=== PATIENT | male | born 1970 | race Caucasian/White ===

== ENCOUNTER 2016-11-22 16:12 | Inpatient (IN) | payer MEDICARE ==
[~2016-11-22] VITALS: Ht 165.1 cm; Wt 74.6 kg
[~2016-11-22 16:12] MED LIST: OLAN15TA2 PO; TRAZ150T85 PO; VITAD1000 PO
[2016-11-22 16:32] VITALS: BP 121/89
[2016-11-22] MEDS ORDERED: OLANZapine 5 MG RAPDIS TABLET PO PRN (16:45)
[2016-11-22] MEDS ORDERED: INFLUENZA VIRUS VACCINE QVS 2016-17 (3YR+)/PF 60 MCG/0.5 ML SYRINGE IM ONE (16:45)
[2016-11-22] MEDS ORDERED: ZOLPIDEM TARTRATE 10 MG TABLET PO PRN (16:45)
[2016-11-22 17:00] VITALS: BP 125/95
[2016-11-22] MEDS: LORazepam 1 MG TABLET PO PRN (18:05)
[2016-11-22] MEDS: TraZODone HCL 150 MG TABLET PO SCH (20:40)
[2016-11-22] MEDS: OLANZapine 10 MG TABLET PO SCH (20:40)
[2016-11-23 00:13] VITALS: BP 108/65
[2016-11-23 08:29] LABS: BASOPHILS # (AUTO) 0.04 K/uL (0.00-0.20); BASOPHILS % (AUTO) 0.7 % (0.0-2.0); EOSINOPHILS # (AUTO) 0.16 K/uL (0.00-0.70); EOSINOPHILS % (AUTO) 2.92 % (1.0-6.0); HEMATOCRIT 47.4 % (41-53); HEMOGLOBIN 15.8 g/dL (13.5-17.5); LYMPHOCYTES # (AUTO) 2.1 K/uL (1.0-4.8); LYMPHOCYTES % (AUTO) 39.2 % (22.0-44.0); MEAN CORPUSCULAR HEMOGLOBIN 28.6 pg (26.0-34.0); MEAN CORPUSCULAR HGB CONC 33.3 G/dL (31.0-37.0); MEAN CORPUSCULAR VOLUME 86 fL (80-100); MONOCYTES # (AUTO) 0.4 K/uL (0.1-1.0); MONOCYTES % (AUTO) 8.2 % (2.0-9.0); NEUTROPHILS # (AUTO) 2.6 K/uL (1.8-7.7); PLATELET COUNT (AUTO) 255 K/uL (150-450); RED CELL DISTRIBUTION WIDTH 14.8 % (11.5-14.5); WHITE BLOOD COUNT (AUTO) 5.3 K/uL (4.5-11.0)
[2016-11-23 08:30] LABS: HEMOGLOBIN A1C 5.9 % (4.5-6.2)
[2016-11-23 08:59] LABS: ALANINE AMINOTRANSFERASE 21 U/L (12-78); ALBUMIN 3.1 g/dL (3.4-5.0); ANION GAP 6 mmol/L (8-16); ASPARTATE AMINOTRANSFERASE 19 U/L (15-37); BILIRUBIN,TOTAL 0.3 mg/dL (0.1-1.0); CALCIUM, TOTAL 8.3 mg/dL (8.8-10.5); CARBON DIOXIDE 28 mmol/L (22-29); CHLORIDE 106 mmol/L (98-107); CREATINE KINASE MB 0.5 ng/mL (0-5); CREATINE KINASE, TOTAL 76 U/L (39-308); CREATININE 1.01 mg/dL (0.60-1.30); GLOMERULAR FILTR. RATE CALC > 60 mL/min (>60); POTASSIUM 4.2 mmol/L (3.5-5.1); SODIUM SERUM 140 mmol/L (136-145); THYROID STIMULATING HORMONE 0.87 uIU/mL (0.36-3.74); TOTAL PROTEIN, SERUM 6.3 g/dL (6.4-8.2); UREA NITROGEN, BLOOD 16 mg/dL (7-18)
[2016-11-23] MEDS ORDERED: FLUoxetine HCL 20 MG CAPSULE PO SCH (09:00)
[2016-11-23 09:07] VITALS: BP 102/66
[2016-11-23] MEDS: LORazepam 1 MG TABLET PO PRN ×2 (11:03→21:04)
[2016-11-23 16:35] VITALS: BP 113/82
[2016-11-23] MEDS: TraZODone HCL 150 MG TABLET PO SCH (21:05)
[2016-11-23] MEDS: OLANZapine 10 MG TABLET PO SCH (21:05)
[2016-11-24 03:07] VITALS: BP 105/60
[2016-11-24] MEDS: FLUoxetine HCL 20 MG CAPSULE PO SCH (08:38)
[2016-11-24 08:43] VITALS: BP 121/64
[2016-11-24 10:26] LABS: HEPATITIS Bs ANTIGEN SCREEN P Negative (Negative); HEPATITIS C AB SCREEN <0.1 s/co ratio (0.0-0.9)
[2016-11-24] MEDS: LORazepam 1 MG TABLET PO PRN ×3 (11:48→20:07)
[2016-11-24 16:00] VITALS: BP 110/71
[2016-11-24] MEDS: TraZODone HCL 150 MG TABLET PO SCH (20:05)
[2016-11-24] MEDS: OLANZapine 10 MG TABLET PO SCH (20:05)
[2016-11-25 06:26] VITALS: BP 103/62
[2016-11-25] MEDS ORDERED: CYANOCOBALAMIN 1,000 MCG/ML VIAL IM ONE (08:00)
[2016-11-25 08:35] VITALS: BP 107/58
[2016-11-25] MEDS: FLUoxetine HCL 20 MG CAPSULE PO SCH (08:42)
[2016-11-25] MEDS: CHOLECALCIFEROL (VIT D3) 1,000 UNITS TABLET PO SCH (08:42)
[2016-11-25 16:00] VITALS: BP 110/69
[2016-11-25] MEDS: LORazepam 1 MG TABLET PO PRN (17:02)
[2016-11-25] MEDS: TraZODone HCL 150 MG TABLET PO SCH (21:03)
[2016-11-25] MEDS: OLANZapine 10 MG TABLET PO SCH (21:03)
[2016-11-26 02:22] VITALS: BP 100/60
[2016-11-26 08:03] VITALS: BP 125/56
[2016-11-26] MEDS: CHOLECALCIFEROL (VIT D3) 1,000 UNITS TABLET PO SCH (09:00)
[2016-11-26] MEDS: CYANOCOBALAMIN 500 MCG TABLET PO SCH (09:00)
[2016-11-26] MEDS: FLUoxetine HCL 20 MG CAPSULE PO SCH (09:09)
[2016-11-26 10:57] VITALS: BP 125/78
[2016-11-26 16:08] VITALS: BP 117/72
[2016-11-26] MEDS: LORazepam 1 MG TABLET PO PRN (16:34)
[2016-11-26] MEDS: OLANZapine 10 MG TABLET PO SCH (20:09)
[2016-11-26] MEDS: TraZODone HCL 150 MG TABLET PO SCH (20:09)
[2016-11-27 07:36] VITALS: BP 112/76
[2016-11-27 08:15] VITALS: BP 106/64
[2016-11-27] MEDS: CYANOCOBALAMIN 500 MCG TABLET PO SCH (08:20)
[2016-11-27] MEDS: CHOLECALCIFEROL (VIT D3) 1,000 UNITS TABLET PO SCH (08:20)
[2016-11-27] MEDS ORDERED: FLUoxetine HCL 20 MG CAPSULE PO SCH (09:00)
[2016-11-27] MEDS: LORazepam 1 MG TABLET PO PRN (16:04)
[2016-11-27 16:50] VITALS: BP 112/69
[2016-11-27] MEDS: TraZODone HCL 150 MG TABLET PO SCH (20:20)
[2016-11-27] MEDS: OLANZapine 10 MG TABLET PO SCH (20:20)
[2016-11-28 00:48] VITALS: BP 114/65
[2016-11-28 08:42] VITALS: BP 111/61
[2016-11-28] MEDS: CYANOCOBALAMIN 500 MCG TABLET PO SCH (08:57)
[2016-11-28] MEDS: CHOLECALCIFEROL (VIT D3) 1,000 UNITS TABLET PO SCH (08:58)
[2016-11-28] MEDS ORDERED: FLUoxetine HCL 20 MG CAPSULE PO SCH (09:00)
[2016-11-28] MEDS: LORazepam 1 MG TABLET PO PRN ×2 (14:52→20:32)
[2016-11-28 16:24] VITALS: BP 106/67
[2016-11-28] MEDS: TraZODone HCL 150 MG TABLET PO SCH (20:10)
[2016-11-28] MEDS: OLANZapine 10 MG TABLET PO SCH (20:10)
[2016-11-29 00:30] VITALS: BP 107/66
[2016-11-29] MEDS ORDERED: FLUO-191 PO (04:57)
[2016-11-29] MEDS ORDERED: CYAN500 PO (04:57)
[2016-11-29 10:55] LABS: CREATINE KINASE, TOTAL 40 U/L (39-308); THYROID STIMULATING HORMONE 1.78 uIU/mL (0.36-3.74)
== END 2016-11-29 07:20 | disposition home or self-care (01) | DRG 885 ==
LOC: B2S 17:26 → EDSTATUS 17:41 → B2S 11-23 14:02
PROVIDERS: ADMIT Psychiatry & Neurology Psychiatry; ATTEND Psychiatry & Neurology Psychiatry
DX: F25.1 Schizoaffective disorder, depressive type (principal); R45.851 Suicidal ideations; E46 Unspecified protein-calorie malnutrition; F15.20 Other stimulant dependence, uncomplicated; F41.9 Anxiety disorder, unspecified; I10 Essential (primary) hypertension; D64.9 Anemia, unspecified; E78.1 Pure hyperglyceridemia; E55.9 Vitamin D deficiency, unspecified; E53.8 Deficiency of other specified B group vitamins; E03.9 Hypothyroidism, unspecified; Z71.51 Drug abuse counseling and surveillance of drug abuser; Z68.27 Body mass index [BMI] 27.0-27.9, adult; Z91.5 Personal history of self-harm; Z62.819 Personal history of unspecified abuse in childhood; Z83.79 Family history of other diseases of the digestive system
CPT/HCPCS: 80074; 82306; 82607; 82746; 83036; 83735; 84439; 84443

== ENCOUNTER 2018-01-20 17:54 | Inpatient (IN) | payer MEDICARE ==
[~2018-01-20] VITALS: Ht 165.1 cm; Wt 68.3 kg
[~2018-01-20 17:54] MED LIST changes: +FLUO-191 PO; +OLAN10TA3 PO; -OLAN15TA2 PO; +TRAZ150T79 PO; -TRAZ150T85 PO; -VITAD1000 PO
[2018-01-20] MEDS ORDERED: ZOLPIDEM TARTRATE 10 MG TABLET PO PRN (18:15)
[2018-01-20 18:36] VITALS: BP 119/83
[2018-01-20] MEDS ORDERED: PNEUMOCOCCAL VACCINE POLYVALENT 0.5 ML VIAL [PPSV23] IM ONE (20:00)
[2018-01-20] MEDS ORDERED: ACETAMINOPHEN 500 MG TABLET PO PRN (21:30)
[2018-01-20 22:41] VITALS: BP 126/79
[2018-01-20] MEDS: IBUPROFEN 600 MG TABLET PO PRN (22:44)
[2018-01-20] MEDS: LORazepam 2 MG TABLET PO PRN (22:44)
[2018-01-21 05:31] VITALS: BP 118/70
[2018-01-21 08:03] VITALS: BP 122/78
[2018-01-21] MEDS: IBUPROFEN 600 MG TABLET PO PRN ×2 (08:03→16:34)
[2018-01-21] MEDS: LORazepam 2 MG TABLET PO PRN ×2 (08:03→16:27)
[2018-01-21 08:31] LABS: BASOPHILS % (AUTO) 1.6 % (0.0-2.0); HEMATOCRIT 39.2 % (41-53); HEMOGLOBIN 13.3 g/dL (13.5-17.5); LYMPHOCYTES % (AUTO) 48.4 % (22.0-44.0); MEAN CORPUSCULAR HEMOGLOBIN 29.3 pg (26.0-34.0); MEAN CORPUSCULAR HGB CONC 33.8 G/dL (31.0-37.0); MEAN CORPUSCULAR VOLUME 87 fL (80-100); MONOCYTES # (AUTO) 0.4 K/uL (0.1-1.0); MONOCYTES % (AUTO) 9.7 % (2.0-9.0); NEUTROPHILS # (AUTO) 1.4 K/uL (1.8-7.7); NEUTROPHILS % (AUTO) 33.3 % (40.0-70.0); PLATELET COUNT (AUTO) 337 K/uL (150-450); RED BLOOD CELL COUNT(AUTO) 4.53 MIL/uL (4.50-5.90); RED CELL DISTRIBUTION WIDTH 13.9 % (11.5-14.5)
[2018-01-21 08:38] LABS: HEMOGLOBIN A1C 5.9 % (4.5-6.2)
[2018-01-21 08:52] LABS: ALANINE AMINOTRANSFERASE 19 U/L (12-78); ALBUMIN 2.7 g/dL (3.4-5.0); ALKALINE PHOSPHATASE 102 U/L (46-116); ANION GAP 7 mmol/L (8-16); ASPARTATE AMINOTRANSFERASE 15 U/L (15-37); BILIRUBIN,TOTAL 0.4 mg/dL (0.1-1.0); CARBON DIOXIDE 29 mmol/L (22-29); CHLORIDE 105 mmol/L (98-107); CHOL/HDL RATIO 1.9 (4.2-7.3); CHOLESTEROL 132 mg/dL (131-200); CREATININE 0.85 mg/dL (0.60-1.30); FREE T4 (FREE THYROXINE) 0.78 ng/dL (0.76-1.46); GLOMERULAR FILTR. RATE CALC > 60 mL/min (>60); GLUCOSE,RANDOM 89 mg/dL (70-110); HDL CHOLESTEROL 71 mg/dL (40-60); LDL CHOL (CALC.) 50 mg/dL (0-130); POTASSIUM 3.3 mmol/L (3.5-5.1); SODIUM SERUM 141 mmol/L (136-145); THYROID STIMULATING HORMONE 0.85 uIU/mL (0.36-3.74); TOTAL PROTEIN, SERUM 5.3 g/dL (6.4-8.2); TRIGLYCERIDES 55 mg/dL (15-150); UREA NITROGEN, BLOOD 12 mg/dL (7-18)
[2018-01-21] MEDS ORDERED: POTASSIUM CHLORIDE 20 MEQ ER TABLET PO ONE (09:45)
[2018-01-21 16:30] VITALS: BP 129/62
[2018-01-21] MEDS: OLANZapine 10 MG TABLET PO SCH (20:34)
[2018-01-21] MEDS: TraZODone HCL 150 MG TABLET PO SCH (20:34)
[2018-01-22 05:59] VITALS: BP 120/82
[2018-01-22 08:53] VITALS: BP 149/76
[2018-01-22] MEDS: LORazepam 2 MG TABLET PO PRN (08:53)
[2018-01-22] MEDS: IBUPROFEN 600 MG TABLET PO PRN ×2 (08:54→20:27)
[2018-01-22] MEDS: FLUoxetine HCL 20 MG CAPSULE PO SCH (08:54)
[2018-01-22 09:15] VITALS: BP 149/76
[2018-01-22 17:12] VITALS: BP 131/87
[2018-01-22 20:25] VITALS: BP 142/70
[2018-01-22] MEDS: TraZODone HCL 150 MG TABLET PO SCH (20:27)
[2018-01-22] MEDS: OLANZapine 10 MG TABLET PO SCH (20:27)
[2018-01-22 22:30] VITALS: BP 143/95
[2018-01-23 07:16] LABS: ANION GAP 7 mmol/L (8-16); CALCIUM, TOTAL 8.2 mg/dL (8.8-10.5); CARBON DIOXIDE 28 mmol/L (22-29); CHLORIDE 107 mmol/L (98-107); CREATINE KINASE, TOTAL 30 U/L (39-308); CREATININE 0.83 mg/dL (0.60-1.30); GLOMERULAR FILTR. RATE CALC > 60 mL/min (>60); GLUCOSE,RANDOM 92 mg/dL (70-110); POTASSIUM 3.6 mmol/L (3.5-5.1); SODIUM SERUM 142 mmol/L (136-145); UREA NITROGEN, BLOOD 14 mg/dL (7-18)
[2018-01-23] MEDS: FLUoxetine HCL 20 MG CAPSULE PO SCH (10:52)
[2018-01-23 12:18] VITALS: BP 98/60
[2018-01-23] MEDS: IBUPROFEN 600 MG TABLET PO PRN (13:23)
[2018-01-23] MEDS: LORazepam 2 MG TABLET PO PRN ×2 (13:23→17:31)
[2018-01-23 17:05] VITALS: BP 116/80
[2018-01-23] MEDS: TraZODone HCL 150 MG TABLET PO SCH (21:12)
[2018-01-23] MEDS: OLANZapine 10 MG TABLET PO SCH (21:12)
[2018-01-24 08:00] VITALS: BP 100/64
[2018-01-24] MEDS: FLUoxetine HCL 20 MG CAPSULE PO SCH (08:47)
[2018-01-24 10:30] VITALS: BP 111/73
[2018-01-24] MEDS: IBUPROFEN 600 MG TABLET PO PRN ×2 (10:48→20:16)
[2018-01-24] MEDS: LORazepam 2 MG TABLET PO PRN ×2 (10:48→20:16)
[2018-01-24 11:50] VITALS: BP 110/64
[2018-01-24 16:15] VITALS: BP 112/84
[2018-01-24] MEDS: OLANZapine 10 MG TABLET PO SCH (20:16)
[2018-01-24] MEDS: TraZODone HCL 150 MG TABLET PO SCH (20:16)
[2018-01-24 21:16] VITALS: BP 97/62
[2018-01-25 08:40] VITALS: BP 120/65
[2018-01-25] MEDS: FLUoxetine HCL 20 MG CAPSULE PO SCH (09:04)
[2018-01-25] MEDS: IBUPROFEN 600 MG TABLET PO PRN ×2 (09:04→16:06)
[2018-01-25 10:10] VITALS: BP 118/61
[2018-01-25] MEDS: LORazepam 2 MG TABLET PO PRN (12:21)
[2018-01-25 16:00] VITALS: BP 130/75
[2018-01-25 17:05] VITALS: BP 118/69
[2018-01-25 18:11] LABS: AMPHET/METH SCREEN,URINE NEGATIVE (NEGATIVE); BARBITURATE SCREEN, URINE NEGATIVE (NEGATIVE); BENZODIAZEPINES SCREEN,URINE NEGATIVE (NEGATIVE); CANNABINOID SCREEN,URINE NEGATIVE (NEGATIVE); COCAINE SCREEN,URINE NEGATIVE (NEGATIVE); METHADONE SCREEN, URINE NEGATIVE (NEGATIVE); OPIATE SCREEN,URINE NEGATIVE (NEGATIVE)
[2018-01-25 18:14] LABS: PHENCYCLIDINE SCREEN,URINE NEGATIVE (NEGATIVE)
[2018-01-25 18:33] LABS: APPEARANCE,URINE CLEAR (CLEAR); BILIRUBIN,URINE NEGATIVE (NEGATIVE); GLUCOSE, URINE (UA) NEGATIVE (NEGATIVE); KETONES,URINE NEGATIVE (NEGATIVE); LEUKOCYTE ESTERASE ,URINE NEGATIVE (NEGATIVE); NITRATE,URINE NEGATIVE (NEGATIVE); OCCULT BLOOD,URINE NEGATIVE (NEGATIVE); PROTEIN,URINE NEGATIVE (NEGATIVE); UROBILINOGEN,URINE 0.2 mg/dL (<=1.0)
[2018-01-25] MEDS: TraZODone HCL 150 MG TABLET PO SCH (20:17)
[2018-01-25] MEDS: OLANZapine 10 MG TABLET PO SCH (20:17)
[2018-01-26 08:50] VITALS: BP 116/61
[2018-01-26] MEDS: IBUPROFEN 600 MG TABLET PO PRN ×2 (09:00→17:19)
[2018-01-26] MEDS: FLUoxetine HCL 20 MG CAPSULE PO SCH (09:00)
[2018-01-26 10:06] VITALS: BP 112/67
[2018-01-26 16:08] VITALS: BP 108/68
[2018-01-26] MEDS: LORazepam 2 MG TABLET PO PRN ×2 (17:19→23:54)
[2018-01-26] MEDS: OLANZapine 10 MG TABLET PO SCH (20:33)
[2018-01-26] MEDS: TraZODone HCL 150 MG TABLET PO SCH (20:33)
[2018-01-27] VITALS (7 sets, daily range): BP systolic 114–145; BP diastolic 75–78
[2018-01-27] MEDS: FLUoxetine HCL 20 MG CAPSULE PO SCH (08:44)
[2018-01-27] MEDS: LORazepam 2 MG TABLET PO PRN ×2 (12:36→20:25)
[2018-01-27] MEDS: IBUPROFEN 600 MG TABLET PO PRN ×2 (12:36→20:26)
[2018-01-27] MEDS: TraZODone HCL 150 MG TABLET PO SCH (20:25)
[2018-01-27] MEDS: OLANZapine 10 MG TABLET PO SCH (20:26)
[2018-01-28 00:45] VITALS: BP 131/79
[2018-01-28] MEDS: FLUoxetine HCL 20 MG CAPSULE PO SCH (08:14)
[2018-01-28 08:37] VITALS: BP 101/60
[2018-01-28 13:44] VITALS: BP 118/71
[2018-01-28] MEDS: IBUPROFEN 600 MG TABLET PO PRN (13:44)
[2018-01-28] MEDS: LORazepam 2 MG TABLET PO PRN ×2 (13:44→18:59)
[2018-01-28 14:44] VITALS: BP 110/64
[2018-01-28 18:35] VITALS: BP 115/69
[2018-01-28] MEDS: TraZODone HCL 150 MG TABLET PO SCH (20:03)
[2018-01-28] MEDS: OLANZapine 10 MG TABLET PO SCH (20:03)
[2018-01-29 00:15] VITALS: BP 114/62
[2018-01-29] MEDS: LORazepam 2 MG TABLET PO PRN ×3 (00:22→20:18)
[2018-01-29] MEDS: FLUoxetine HCL 20 MG CAPSULE PO SCH (08:18)
[2018-01-29 09:02] VITALS: BP 119/80
[2018-01-29 13:43] VITALS: BP 122/64
[2018-01-29] MEDS: IBUPROFEN 600 MG TABLET PO PRN (13:43)
[2018-01-29 17:00] VITALS: BP 114/77
[2018-01-29] MEDS: TraZODone HCL 150 MG TABLET PO SCH (20:16)
[2018-01-29] MEDS: OLANZapine 10 MG TABLET PO SCH (20:16)
[2018-01-30 08:00] VITALS: BP 110/72
[2018-01-30] MEDS ORDERED: BISACODYL 5 MG EC TABLET PO PRN (08:45)
[2018-01-30] MEDS: FLUoxetine HCL 20 MG CAPSULE PO SCH (09:03)
[2018-01-30] MEDS: LORazepam 2 MG TABLET PO PRN (13:58)
[2018-01-30] MEDS: IBUPROFEN 600 MG TABLET PO PRN (13:59)
[2018-01-30 16:25] VITALS: BP 103/51
[2018-01-30 16:59] VITALS: BP 128/73
[2018-01-30] MEDS: ACETAMINOPHEN 500 MG TABLET PO PRN (17:02)
[2018-01-30 17:59] VITALS: BP 121/71
[2018-01-30] MEDS: OLANZapine 10 MG TABLET PO SCH (21:19)
[2018-01-30] MEDS: TraZODone HCL 150 MG TABLET PO SCH (21:20)
[2018-01-31 00:15] VITALS: BP 101/66
[2018-01-31] MEDS: FLUoxetine HCL 20 MG CAPSULE PO SCH (08:13)
[2018-01-31] MEDS: IBUPROFEN 600 MG TABLET PO PRN ×3 (08:15→22:10)
[2018-01-31 08:17] VITALS: BP 105/63
[2018-01-31] MEDS: HALOPERIDOL 5 MG TABLET PO PRN ×2 (11:32→22:10)
[2018-01-31] MEDS: ACETAMINOPHEN 500 MG TABLET PO PRN (13:22)
[2018-01-31 16:02] VITALS: BP 103/58
[2018-01-31] MEDS: OLANZapine 10 MG TABLET PO SCH (20:11)
[2018-01-31] MEDS: TraZODone HCL 150 MG TABLET PO SCH (20:11)
[2018-02-01] MEDS: FLUoxetine HCL 20 MG CAPSULE PO SCH (07:59)
[2018-02-01 09:11] VITALS: BP 118/72
[2018-02-01] MEDS: IBUPROFEN 600 MG TABLET PO PRN ×2 (11:09→19:27)
[2018-02-01] MEDS ORDERED: ACETAMINOPHEN 325 MG TABLET PO PRN (14:00)
[2018-02-01] MEDS: HALOPERIDOL 5 MG TABLET PO PRN (17:03)
[2018-02-01 19:30] VITALS: BP 146/65
[2018-02-01] MEDS: OLANZapine 10 MG TABLET PO SCH (20:06)
[2018-02-01] MEDS: TraZODone HCL 150 MG TABLET PO SCH (20:06)
[2018-02-02] MEDS: FLUoxetine HCL 20 MG CAPSULE PO SCH (07:53)
[2018-02-02] MEDS: IBUPROFEN 600 MG TABLET PO PRN ×2 (07:54→16:24)
[2018-02-02 08:00] VITALS: BP 113/67
[2018-02-02 16:21] VITALS: BP 123/77
[2018-02-02] MEDS: TraZODone HCL 150 MG TABLET PO SCH (20:00)
[2018-02-02] MEDS: OLANZapine 10 MG TABLET PO SCH (20:00)
[2018-02-02] MEDS: HALOPERIDOL 5 MG TABLET PO PRN (20:04)
[2018-02-03 08:18] VITALS: BP 107/62
[2018-02-03] MEDS: IBUPROFEN 600 MG TABLET PO PRN (08:27)
[2018-02-03] MEDS: FLUoxetine HCL 20 MG CAPSULE PO SCH (08:28)
[2018-02-03] MEDS ORDERED: OLAN7.5T2 PO (10:43)
== END 2018-02-03 11:00 | disposition home or self-care (01) | DRG 885 ==
LOC: B2X 18:17 → 3EX 01-22 22:10
PROVIDERS: ADMIT Psychiatry & Neurology Psychiatry; ATTEND Psychiatry & Neurology Psychiatry
DX: F25.9 Schizoaffective disorder, unspecified (principal); E43 Unspecified severe protein-calorie malnutrition; R45.851 Suicidal ideations; D64.9 Anemia, unspecified; F17.200 Nicotine dependence, unspecified, uncomplicated; E87.6 Hypokalemia; D72.819 Decreased white blood cell count, unspecified; F15.10 Other stimulant abuse, uncomplicated; M17.10 Unilateral primary osteoarthritis, unspecified knee; R26.9 Unspecified abnormalities of gait and mobility; F11.10 Opioid abuse, uncomplicated; E88.09 Other disorders of plasma-protein metabolism, not elsewhere classified; K59.00 Constipation, unspecified; Z71.51 Drug abuse counseling and surveillance of drug abuser; Z76.5 Malingerer [conscious simulation]; Z91.19 Patient's noncompliance with other medical treatment and regimen; Z79.899 Other long term (current) drug therapy; Z68.25 Body mass index [BMI] 25.0-25.9, adult
CPT/HCPCS: 80307; 83036; 83735; 84439; 84443; 97116; 97161; 97165; 97530

== ENCOUNTER 2018-07-21 06:39 | Inpatient (IN) | payer MEDICARE ==
[~2018-07-21] VITALS: Ht 162.6 cm; Wt 69.4 kg
[~2018-07-21 06:39] MED LIST changes: +FERR-89 PO
[2018-07-21 10:42] VITALS: BP 125/86
[2018-07-21 12:13] VITALS: BP 117/78
[2018-07-21] MEDS: LORazepam 2 MG TABLET PO PRN ×2 (13:09→22:08)
[2018-07-21 13:20] VITALS: BP 114/68
[2018-07-21 23:15] VITALS: BP 116/70
[2018-07-22] VITALS (8 sets, daily range): BP systolic 106–114; BP diastolic 60–82
[2018-07-22] MEDS: FERROUS SULFATE 325 MG EC TABLET PO SCH (06:55)
[2018-07-22 08:20] LABS: BASOPHILS % (AUTO) 1.3 % (0.0-2.0); EOSINOPHILS % (AUTO) 4.7 % (1.0-6.0); HEMATOCRIT 34.6 % (41-53); LYMPHOCYTES # (AUTO) 1.5 K/uL (1.0-4.8); LYMPHOCYTES % (AUTO) 31.1 % (22.0-44.0); MEAN CORPUSCULAR HEMOGLOBIN 22.6 pg (26.0-34.0); MEAN CORPUSCULAR HGB CONC 31.9 G/dL (31.0-37.0); MEAN CORPUSCULAR VOLUME 71 fL (80-100); MONOCYTES # (AUTO) 0.4 K/uL (0.1-1.0); NEUTROPHILS # (AUTO) 2.7 K/uL (1.8-7.7); NEUTROPHILS % (AUTO) 54.9 % (40.0-70.0); PLATELET COUNT (AUTO) 324 K/uL (150-450); RED BLOOD CELL COUNT(AUTO) 4.88 MIL/uL (4.50-5.90); RED CELL DISTRIBUTION WIDTH 22.2 % (11.5-14.5)
[2018-07-22 08:42] LABS: ALANINE AMINOTRANSFERASE 24 U/L (12-78); ALBUMIN 2.8 g/dL (3.4-5.0); ALKALINE PHOSPHATASE 85 U/L (46-116); ANION GAP 6 mmol/L (8-16); ASPARTATE AMINOTRANSFERASE 22 U/L (15-37); BILIRUBIN,TOTAL 0.1 mg/dL (0.1-1.0); CARBON DIOXIDE 28 mmol/L (22-29); CHLORIDE 106 mmol/L (98-107); CHOL/HDL RATIO 2.3 (4.2-7.3); CHOLESTEROL 147 mg/dL (131-200); CREATININE 0.87 mg/dL (0.60-1.30); FREE T4 (FREE THYROXINE) 0.72 ng/dL (0.76-1.46); GLOMERULAR FILTR. RATE CALC > 60 mL/min (>60); GLUCOSE,RANDOM 101 mg/dL (70-110); HDL CHOLESTEROL 64 mg/dL (40-60); LDL CHOL (CALC.) 66 mg/dL (0-130); POTASSIUM 3.8 mmol/L (3.5-5.1); SODIUM SERUM 140 mmol/L (136-145); THYROID STIMULATING HORMONE 0.38 uIU/mL (0.36-3.74); TOTAL PROTEIN, SERUM 5.9 g/dL (6.4-8.2); TRIGLYCERIDES 87 mg/dL (15-150); UREA NITROGEN, BLOOD 17 mg/dL (7-18)
[2018-07-22] MEDS: LORazepam 2 MG TABLET PO PRN (16:29)
[2018-07-22] MEDS: OLANZapine 10 MG TABLET PO SCH (20:38)
[2018-07-22] MEDS: TraZODone HCL 150 MG TABLET PO SCH (20:38)
[2018-07-23 05:14] VITALS: BP 110/68
[2018-07-23] MEDS: FERROUS SULFATE 325 MG EC TABLET PO SCH (06:59)
[2018-07-23 08:16] VITALS: BP 104/69
[2018-07-23] MEDS: FLUoxetine HCL 20 MG CAPSULE PO SCH (08:40)
[2018-07-23] MEDS: LORazepam 2 MG TABLET PO PRN ×2 (10:34→17:18)
[2018-07-23 16:06] VITALS: BP 121/76
[2018-07-23] MEDS: OLANZapine 10 MG TABLET PO SCH (20:41)
[2018-07-23] MEDS: TraZODone HCL 150 MG TABLET PO SCH (20:41)
[2018-07-24 06:27] VITALS: BP 120/72
[2018-07-24] MEDS: FERROUS SULFATE 325 MG EC TABLET PO SCH (06:50)
[2018-07-24 08:34] VITALS: BP 117/69
[2018-07-24] MEDS: FLUoxetine HCL 20 MG CAPSULE PO SCH (08:34)
[2018-07-24] MEDS ORDERED: BISACODYL 5 MG EC TABLET PO PRN (15:45)
[2018-07-24 17:01] VITALS: BP 121/78
[2018-07-24] MEDS: LORazepam 2 MG TABLET PO PRN (17:17)
[2018-07-24] MEDS: OLANZapine 10 MG TABLET PO SCH (20:59)
[2018-07-24] MEDS: TraZODone HCL 150 MG TABLET PO SCH (20:59)
[2018-07-25 06:31] VITALS: BP 118/72
[2018-07-25] MEDS: FERROUS SULFATE 325 MG EC TABLET PO SCH (06:44)
[2018-07-25] MEDS: FLUoxetine HCL 20 MG CAPSULE PO SCH (08:39)
[2018-07-25 09:18] VITALS: BP_SYST 107; BP_SYST 137; BP_DIAS 62; BP_DIAS 66
[2018-07-25] MEDS: LORazepam 2 MG TABLET PO PRN (12:13)
[2018-07-25 16:34] VITALS: BP 110/67
[2018-07-25] MEDS: OLANZapine 10 MG TABLET PO SCH (20:28)
[2018-07-25] MEDS: TraZODone HCL 150 MG TABLET PO SCH (20:29)
[2018-07-26] MEDS: FERROUS SULFATE 325 MG EC TABLET PO SCH (06:46)
[2018-07-26 08:12] VITALS: BP 120/73
[2018-07-26] MEDS: FLUoxetine HCL 20 MG CAPSULE PO SCH (08:50)
[2018-07-26] MEDS: LORazepam 2 MG TABLET PO PRN ×2 (11:14→19:15)
[2018-07-26 16:09] VITALS: BP 122/84
[2018-07-26] MEDS: TraZODone HCL 150 MG TABLET PO SCH (20:07)
[2018-07-26] MEDS: OLANZapine 10 MG TABLET PO SCH (20:07)
[2018-07-27 05:22] VITALS: BP 120/86
[2018-07-27] MEDS: FERROUS SULFATE 325 MG EC TABLET PO SCH (07:12)
[2018-07-27] MEDS: FLUoxetine HCL 20 MG CAPSULE PO SCH (08:23)
[2018-07-27 09:56] VITALS: BP 117/96
[2018-07-27 10:30] VITALS: BP 116/84
[2018-07-27] MEDS: LORazepam 2 MG TABLET PO PRN ×2 (13:36→21:50)
[2018-07-27 16:08] VITALS: BP 116/75
[2018-07-27] MEDS: TraZODone HCL 150 MG TABLET PO SCH (20:08)
[2018-07-27] MEDS: OLANZapine 10 MG TABLET PO SCH (20:08)
[2018-07-28 05:50] VITALS: BP 120/81
[2018-07-28] MEDS: FERROUS SULFATE 325 MG EC TABLET PO SCH (06:14)
[2018-07-28 08:01] VITALS: BP 116/95
[2018-07-28] MEDS: FLUoxetine HCL 20 MG CAPSULE PO SCH (08:22)
[2018-07-28] MEDS: LORazepam 2 MG TABLET PO PRN ×2 (11:51→19:08)
[2018-07-28 18:50] VITALS: BP 123/74
[2018-07-28] MEDS: OLANZapine 10 MG TABLET PO SCH (20:38)
[2018-07-28] MEDS: TraZODone HCL 150 MG TABLET PO SCH (20:38)
[2018-07-29 04:56] VITALS: BP 121/68
[2018-07-29] MEDS: FERROUS SULFATE 325 MG EC TABLET PO SCH (06:05)
[2018-07-29 08:21] VITALS: BP 117/69
[2018-07-29] MEDS: FLUoxetine HCL 20 MG CAPSULE PO SCH (08:26)
[2018-07-29] MEDS: LORazepam 2 MG TABLET PO PRN ×2 (11:51→16:33)
[2018-07-29 16:27] VITALS: BP 119/79
[2018-07-29] MEDS: OLANZapine 10 MG TABLET PO SCH (20:31)
[2018-07-29] MEDS: TraZODone HCL 150 MG TABLET PO SCH (20:31)
[2018-07-30] VITALS: BP 125/80
[2018-07-30] MEDS: ZOLPIDEM TARTRATE 10 MG TABLET PO PRN (01:11)
[2018-07-30] MEDS: FERROUS SULFATE 325 MG EC TABLET PO SCH (06:48)
[2018-07-30 08:24] VITALS: BP 110/64
[2018-07-30] MEDS: FLUoxetine HCL 20 MG CAPSULE PO SCH (08:38)
[2018-07-30] MEDS: LORazepam 2 MG TABLET PO PRN ×2 (10:45→18:49)
[2018-07-30 16:24] VITALS: BP 94/66
[2018-07-30] MEDS ORDERED: ACETAMINOPHEN 325 MG TABLET PO PRN (18:30)
[2018-07-30 18:47] VITALS: BP 112/65
[2018-07-30] MEDS: IBUPROFEN 600 MG TABLET PO PRN (18:49)
[2018-07-30] MEDS: OLANZapine 10 MG TABLET PO SCH (20:35)
[2018-07-30] MEDS: TraZODone HCL 150 MG TABLET PO SCH (20:35)
[2018-07-31 04:29] VITALS: BP 122/82
[2018-07-31 05:22] VITALS: BP 122/82
[2018-07-31] MEDS: IBUPROFEN 600 MG TABLET PO PRN ×2 (05:22→16:24)
[2018-07-31] MEDS: LORazepam 2 MG TABLET PO PRN ×2 (06:15→14:04)
[2018-07-31] MEDS: FERROUS SULFATE 325 MG EC TABLET PO SCH (06:17)
[2018-07-31 08:35] VITALS: BP 102/70
[2018-07-31] MEDS: FLUoxetine HCL 20 MG CAPSULE PO SCH (08:35)
[2018-07-31 16:18] VITALS: BP 111/65
[2018-07-31] MEDS: OLANZapine 10 MG TABLET PO SCH (20:33)
[2018-07-31] MEDS: TraZODone HCL 150 MG TABLET PO SCH (20:33)
[2018-08-01 02:57] VITALS: BP 135/93
[2018-08-01] MEDS: ZOLPIDEM TARTRATE 10 MG TABLET PO PRN ×2 (02:57→21:24)
[2018-08-01] MEDS: LORazepam 2 MG TABLET PO PRN ×2 (02:57→14:00)
[2018-08-01 05:34] VITALS: BP 135/93
[2018-08-01] MEDS: IBUPROFEN 600 MG TABLET PO PRN ×2 (05:34→14:00)
[2018-08-01] MEDS: FERROUS SULFATE 325 MG EC TABLET PO SCH (06:38)
[2018-08-01 08:14] VITALS: BP 123/65
[2018-08-01] MEDS: FLUoxetine HCL 20 MG CAPSULE PO SCH (09:00)
[2018-08-01 14:00] VITALS: BP 126/77
[2018-08-01 16:26] VITALS: BP 112/73
[2018-08-01] MEDS: OLANZapine 10 MG TABLET PO SCH (20:03)
[2018-08-01] MEDS: TraZODone HCL 150 MG TABLET PO SCH (20:03)
[2018-08-02 02:32] VITALS: BP 147/82
[2018-08-02 03:30] VITALS: BP 115/78
[2018-08-02] MEDS: IBUPROFEN 600 MG TABLET PO PRN (03:35)
[2018-08-02] MEDS: FERROUS SULFATE 325 MG EC TABLET PO SCH (06:04)
[2018-08-02] MEDS: FLUoxetine HCL 20 MG CAPSULE PO SCH (08:14)
[2018-08-02 08:20] VITALS: BP 109/80
== END 2018-08-02 10:50 | disposition home or self-care (01) | DRG 885 ==
LOC: B2X 10:47 → EDSTATUS 11:30
PROVIDERS: ADMIT Psychiatry & Neurology Psychiatry; ATTEND Psychiatry & Neurology Psychiatry
DX: F25.1 Schizoaffective disorder, depressive type (principal); R45.851 Suicidal ideations; E46 Unspecified protein-calorie malnutrition; Z28.21 Immunization not carried out because of patient refusal; D50.9 Iron deficiency anemia, unspecified; E03.9 Hypothyroidism, unspecified; E87.6 Hypokalemia; F22 Delusional disorders; J44.9 Chronic obstructive pulmonary disease, unspecified; K59.00 Constipation, unspecified; Z91.5 Personal history of self-harm; F12.90 Cannabis use, unspecified, uncomplicated; M54.9 Dorsalgia, unspecified; Z68.26 Body mass index [BMI] 26.0-26.9, adult
CPT/HCPCS: 84439; 84443; 87081

== ENCOUNTER 2018-08-18 14:16 | Inpatient (IN) | payer MEDICARE ==
[~2018-08-18] VITALS: Ht 165.1 cm; Wt 69.9 kg
[2018-08-18 19:04] LABS: BASOPHILS % (AUTO) 1.3 % (0.0-2.0); EOSINOPHILS % (AUTO) 1.4 % (1.0-6.0); HEMATOCRIT 40.8 % (41-53); HEMOGLOBIN 12.8 g/dL (13.5-17.5); LYMPHOCYTES # (AUTO) 2.4 K/uL (1.0-4.8); LYMPHOCYTES % (AUTO) 32.8 % (22.0-44.0); MEAN CORPUSCULAR HEMOGLOBIN 23.4 pg (26.0-34.0); MEAN CORPUSCULAR HGB CONC 31.4 G/dL (31.0-37.0); MEAN CORPUSCULAR VOLUME 75 fL (80-100); MONOCYTES # (AUTO) 0.6 K/uL (0.1-1.0); MONOCYTES % (AUTO) 8.5 % (2.0-9.0); NEUTROPHILS # (AUTO) 4.1 K/uL (1.8-7.7); PLATELET COUNT (AUTO) 435 K/uL (150-450); RED BLOOD CELL COUNT(AUTO) 5.48 MIL/uL (4.50-5.90); RED CELL DISTRIBUTION WIDTH 25.5 % (11.5-14.5)
[2018-08-18 19:14] LABS: ANION GAP 4 mmol/L (8-16); CALCIUM, TOTAL 8.9 mg/dL (8.8-10.5); CARBON DIOXIDE 33 mmol/L (22-29); CHLORIDE 102 mmol/L (98-107); CREATININE 0.74 mg/dL (0.60-1.30); GLOMERULAR FILTR. RATE CALC > 60 mL/min (>60); GLUCOSE,RANDOM 96 mg/dL (70-110); POTASSIUM 4.1 mmol/L (3.5-5.1); SODIUM SERUM 139 mmol/L (136-145); UREA NITROGEN, BLOOD 12 mg/dL (7-18)
[2018-08-18 19:20] LABS: ALANINE AMINOTRANSFERASE 34 U/L (12-78); ALBUMIN 3.6 g/dL (3.4-5.0); ALKALINE PHOSPHATASE 93 U/L (46-116); ASPARTATE AMINOTRANSFERASE 38 U/L (15-37); BILIRUBIN,TOTAL 0.4 mg/dL (0.1-1.0); TOTAL PROTEIN, SERUM 7.8 g/dL (6.4-8.2)
[2018-08-18 20:16] LABS: AMPHET/METH SCREEN,URINE POSITIVE (NEGATIVE); BARBITURATE SCREEN, URINE NEGATIVE (NEGATIVE); BENZODIAZEPINES SCREEN,URINE NEGATIVE (NEGATIVE); CANNABINOID SCREEN,URINE NEGATIVE (NEGATIVE); COCAINE SCREEN,URINE NEGATIVE (NEGATIVE); METHADONE SCREEN, URINE NEGATIVE (NEGATIVE); OPIATE SCREEN,URINE NEGATIVE (NEGATIVE); PHENCYCLIDINE SCREEN,URINE NEGATIVE (NEGATIVE)
[2018-08-18] MEDS ORDERED: CloNIDine HCL 0.1 MG TABLET PO ONE (22:00)
[2018-08-18 22:14] VITALS: BP 138/93
[2018-08-18 22:27] VITALS: BP 138/93
[2018-08-19 04:12] VITALS: BP 116/79
[2018-08-19] MEDS ORDERED: HALOPERIDOL 5 MG TABLET PO PRN (06:00)
[2018-08-19] MEDS: LORazepam 2 MG TABLET PO PRN ×2 (06:02→13:29)
[2018-08-19] MEDS ORDERED: BISACODYL 5 MG EC TABLET PO PRN (07:15)
[2018-08-19] MEDS ORDERED: BISMUTH SUBSALICYLATE 262 MG CHEWABLE TABLET CHEW PRN (07:15)
[2018-08-19] MEDS ORDERED: IBUPROFEN 600 MG TABLET PO PRN (07:15)
[2018-08-19] MEDS ORDERED: ACETAMINOPHEN 325 MG TABLET PO PRN (07:15)
[2018-08-19 08:00] VITALS: BP 121/77
[2018-08-19] MEDS: CloNIDine HCL 0.1 MG TABLET PO SCH ×2 (08:28→16:42)
[2018-08-19 16:22] VITALS: BP 102/66
[2018-08-19 16:50] VITALS: BP 117/66
[2018-08-19] MEDS: TraZODone HCL 150 MG TABLET PO SCH (20:23)
[2018-08-19] MEDS: OLANZapine 10 MG TABLET PO SCH (20:24)
[2018-08-20 06:15] VITALS: BP 120/81
[2018-08-20 08:10] VITALS: BP 127/77
[2018-08-20] MEDS: CloNIDine HCL 0.1 MG TABLET PO SCH ×2 (08:48→16:27)
[2018-08-20] MEDS: MULTIVITAMINS WITH IRON TABLET PO SCH (08:48)
[2018-08-20] MEDS: FLUoxetine HCL 20 MG CAPSULE PO SCH (08:48)
[2018-08-20] MEDS: LORazepam 2 MG TABLET PO PRN ×2 (09:19→16:27)
[2018-08-20 16:50] VITALS: BP 118/72
[2018-08-20] MEDS: OLANZapine 10 MG TABLET PO SCH (20:19)
[2018-08-20] MEDS: ZOLPIDEM TARTRATE 10 MG TABLET PO PRN (20:19)
[2018-08-20] MEDS: TraZODone HCL 150 MG TABLET PO SCH (20:19)
[2018-08-21 00:53] VITALS: BP 107/81
[2018-08-21] MEDS: LORazepam 2 MG TABLET PO PRN ×3 (02:40→16:42)
[2018-08-21 08:29] VITALS: BP 106/63
[2018-08-21 08:35] VITALS: BP 112/64
[2018-08-21] MEDS: CloNIDine HCL 0.1 MG TABLET PO SCH ×2 (08:37→16:34)
[2018-08-21] MEDS: MULTIVITAMINS WITH IRON TABLET PO SCH (08:37)
[2018-08-21] MEDS: FLUoxetine HCL 20 MG CAPSULE PO SCH (08:37)
[2018-08-21 16:16] VITALS: BP 119/69
[2018-08-21] MEDS: OLANZapine 10 MG TABLET PO SCH (20:28)
[2018-08-21] MEDS: TraZODone HCL 150 MG TABLET PO SCH (20:28)
[2018-08-22 05:40] VITALS: BP 110/72
[2018-08-22 08:05] VITALS: BP 127/75
[2018-08-22] MEDS: MULTIVITAMINS WITH IRON TABLET PO SCH (08:14)
[2018-08-22] MEDS: CloNIDine HCL 0.1 MG TABLET PO SCH ×2 (08:14→16:24)
[2018-08-22] MEDS: FLUoxetine HCL 20 MG CAPSULE PO SCH (08:14)
[2018-08-22] MEDS: LORazepam 2 MG TABLET PO PRN ×2 (11:48→19:58)
[2018-08-22 16:03] VITALS: BP 116/76
[2018-08-22] MEDS: TraZODone HCL 150 MG TABLET PO SCH (20:33)
[2018-08-22] MEDS: OLANZapine 10 MG TABLET PO SCH (20:34)
[2018-08-23 06:02] VITALS: BP 117/73
[2018-08-23 08:07] VITALS: BP 110/84
[2018-08-23] MEDS: CloNIDine HCL 0.1 MG TABLET PO SCH ×2 (08:37→16:47)
[2018-08-23] MEDS: MULTIVITAMINS WITH IRON TABLET PO SCH (08:37)
[2018-08-23] MEDS: FLUoxetine HCL 20 MG CAPSULE PO SCH (08:37)
[2018-08-23] MEDS: LORazepam 2 MG TABLET PO PRN ×2 (11:54→16:47)
[2018-08-23 16:04] VITALS: BP 115/69
[2018-08-23] MEDS: TraZODone HCL 150 MG TABLET PO SCH (20:02)
[2018-08-23] MEDS: OLANZapine 10 MG TABLET PO SCH (20:02)
[2018-08-24 00:02] VITALS: BP 116/79
[2018-08-24 08:05] VITALS: BP 116/61
[2018-08-24] MEDS: FLUoxetine HCL 20 MG CAPSULE PO SCH (08:23)
[2018-08-24] MEDS: MULTIVITAMINS WITH IRON TABLET PO SCH (08:23)
[2018-08-24] MEDS: CloNIDine HCL 0.1 MG TABLET PO SCH ×2 (08:23→16:21)
[2018-08-24] MEDS: LORazepam 2 MG TABLET PO PRN ×2 (11:01→16:21)
[2018-08-24 16:03] VITALS: BP 101/61
[2018-08-24 16:19] VITALS: BP 116/71
[2018-08-24] MEDS: OLANZapine 10 MG TABLET PO SCH (20:09)
[2018-08-24] MEDS: TraZODone HCL 150 MG TABLET PO SCH (20:09)
[2018-08-24] MEDS ORDERED: CloNIDine HCL 0.1 MG TABLET PO PRN (21:15)
[2018-08-25 01:24] VITALS: BP 108/72
[2018-08-25 08:45] VITALS: BP 121/68
[2018-08-25] MEDS: LORazepam 2 MG TABLET PO PRN ×2 (09:02→15:38)
[2018-08-25] MEDS: MULTIVITAMINS WITH IRON TABLET PO SCH (09:02)
[2018-08-25] MEDS: FLUoxetine HCL 20 MG CAPSULE PO SCH (09:02)
[2018-08-25 16:05] VITALS: BP 117/75
[2018-08-25] MEDS: TraZODone HCL 150 MG TABLET PO SCH (20:28)
[2018-08-25] MEDS: OLANZapine 10 MG TABLET PO SCH (20:28)
[2018-08-25] MEDS: ZOLPIDEM TARTRATE 10 MG TABLET PO PRN (20:46)
[2018-08-26 06:21] VITALS: BP 121/68
[2018-08-26 08:27] VITALS: BP 125/79
[2018-08-26] MEDS: MULTIVITAMINS WITH IRON TABLET PO SCH (09:23)
[2018-08-26] MEDS: FLUoxetine HCL 20 MG CAPSULE PO SCH (09:23)
[2018-08-26] MEDS: LORazepam 2 MG TABLET PO PRN ×2 (10:03→15:45)
[2018-08-26 16:07] VITALS: BP 115/78
[2018-08-26] MEDS: OLANZapine 10 MG TABLET PO SCH (20:32)
[2018-08-26] MEDS: TraZODone HCL 150 MG TABLET PO SCH (20:32)
[2018-08-26] MEDS: ZOLPIDEM TARTRATE 10 MG TABLET PO PRN (21:28)
[2018-08-27 00:15] VITALS: BP 119/69
[2018-08-27] MEDS: MULTIVITAMINS WITH IRON TABLET PO SCH (09:08)
[2018-08-27] MEDS: FLUoxetine HCL 20 MG CAPSULE PO SCH (09:08)
[2018-08-27 11:48] VITALS: BP 118/74
[2018-08-27] MEDS: LORazepam 2 MG TABLET PO PRN (11:48)
[2018-08-27 16:19] VITALS: BP 123/74
== END 2018-08-27 17:05 | disposition home or self-care (01) | DRG 885 ==
LOC: EDSTATUS 14:16 → BV PSY EVL 15:21 → B2X 21:33
PROVIDERS: ADMIT Psychiatry & Neurology Psychiatry; ATTEND Psychiatry & Neurology Psychiatry
DX: F25.0 Schizoaffective disorder, bipolar type (principal); F15.20 Other stimulant dependence, uncomplicated; H11.009 Unspecified pterygium of unspecified eye; I10 Essential (primary) hypertension; K59.00 Constipation, unspecified; F17.210 Nicotine dependence, cigarettes, uncomplicated; D64.9 Anemia, unspecified; F12.90 Cannabis use, unspecified, uncomplicated; F19.10 Other psychoactive substance abuse, uncomplicated; Z79.899 Other long term (current) drug therapy; Z02.9 Encounter for administrative examinations, unspecified
CPT/HCPCS: 87081; G0480

== ENCOUNTER 2019-05-05 11:53 | Inpatient (IN) | payer MEDICARE ==
[2019-05-05] VITALS (8 sets, daily range): BP systolic 104–132; BP diastolic 62–100
[~2019-05-05] VITALS: Ht 167.6 cm; Wt 74.4 kg
[~2019-05-05 11:53] MED LIST changes: -FERR-89 PO
[2019-05-05] MEDS ORDERED: ZOLPIDEM TARTRATE 10 MG TABLET PO PRN (14:00)
[2019-05-05] MEDS ORDERED: HALOPERIDOL 5 MG TABLET PO PRN (14:00)
[2019-05-05] MEDS: LORazepam 2 MG TABLET PO PRN (16:38)
[2019-05-06] VITALS (7 sets, daily range): BP systolic 109–137; BP diastolic 71–100
[2019-05-06] MEDS: LORazepam 2 MG TABLET PO PRN ×2 (01:58→15:14)
[2019-05-06 07:54] LABS: BASOPHILS % (AUTO) 1.7 % (0.0-2.0); HEMATOCRIT 45.2 % (41-53); HEMOGLOBIN 14.7 g/dL (13.5-17.5); LYMPHOCYTES # (AUTO) 1.5 K/uL (1.0-4.8); LYMPHOCYTES % (AUTO) 31.7 % (22.0-44.0); MEAN CORPUSCULAR HEMOGLOBIN 29.6 pg (26.0-34.0); MEAN CORPUSCULAR HGB CONC 32.6 G/dL (31.0-37.0); MEAN CORPUSCULAR VOLUME 91 fL (80-100); MONOCYTES # (AUTO) 0.4 K/uL (0.1-1.0); MONOCYTES % (AUTO) 8.5 % (2.0-9.0); NEUTROPHILS # (AUTO) 2.6 K/uL (1.8-7.7); NEUTROPHILS % (AUTO) 54.1 % (40.0-70.0); PLATELET COUNT (AUTO) 253 K/uL (150-450); RED BLOOD CELL COUNT(AUTO) 4.99 MIL/uL (4.50-5.90); RED CELL DISTRIBUTION WIDTH 14.3 % (11.5-14.5)
[2019-05-06] MEDS: FLUoxetine HCL 20 MG CAPSULE PO SCH (08:24)
[2019-05-06 08:51] LABS: ALANINE AMINOTRANSFERASE 21 U/L (12-78); ALBUMIN 2.6 g/dL (3.4-5.0); ALKALINE PHOSPHATASE 84 U/L (46-116); ANION GAP 13 mmol/L (8-16); ASPARTATE AMINOTRANSFERASE 30 U/L (15-37); BILIRUBIN,TOTAL 0.2 mg/dL (0.1-1.0); CALCIUM, TOTAL 8.5 mg/dL (8.8-10.5); CARBON DIOXIDE 26 mmol/L (22-29); CHLORIDE 104 mmol/L (98-107); CHOL/HDL RATIO 2.5 (4.2-7.3); CHOLESTEROL 188 mg/dL (131-200); CREATININE 0.97 mg/dL (0.60-1.30); FREE T4 (FREE THYROXINE) 0.58 ng/dL (0.76-1.46); GLOMERULAR FILTR. RATE CALC > 60 mL/min (>60); GLUCOSE,RANDOM 99 mg/dL (70-110); HDL CHOLESTEROL 76 mg/dL (40-60); LDL CHOL (CALC.) 93 mg/dL (0-130); POTASSIUM 3.9 mmol/L (3.5-5.1); SODIUM SERUM 143 mmol/L (136-145); THYROID STIMULATING HORMONE 1.59 uIU/mL (0.36-3.74); TOTAL PROTEIN, SERUM 5.6 g/dL (6.4-8.2); TRIGLYCERIDES 94 mg/dL (15-150); UREA NITROGEN, BLOOD 13 mg/dL (7-18)
[2019-05-06] MEDS: TraZODone HCL 150 MG TABLET PO SCH (20:40)
[2019-05-06] MEDS: OLANZapine 10 MG TABLET PO SCH (20:40)
[2019-05-07 00:08] VITALS: BP 126/78
[2019-05-07] MEDS: FLUoxetine HCL 20 MG CAPSULE PO SCH (08:13)
[2019-05-07 12:01] VITALS: BP 119/64
[2019-05-07 16:04] VITALS: BP 110/67
[2019-05-07 16:05] VITALS: BP 110/67
[2019-05-07] MEDS: TraZODone HCL 150 MG TABLET PO SCH (20:14)
[2019-05-07] MEDS: OLANZapine 10 MG TABLET PO SCH (20:15)
[2019-05-08 06:24] VITALS: BP 122/77
[2019-05-08 08:12] VITALS: BP 139/77
[2019-05-08 08:13] VITALS: BP 139/77
[2019-05-08] MEDS: FLUoxetine HCL 20 MG CAPSULE PO SCH (08:19)
[2019-05-08 16:00] VITALS: BP 114/67
[2019-05-08] MEDS: OLANZapine 10 MG TABLET PO SCH (20:12)
[2019-05-08] MEDS: TraZODone HCL 150 MG TABLET PO SCH (20:12)
[2019-05-09 06:19] VITALS: BP 107/68
[2019-05-09] MEDS: FLUoxetine HCL 20 MG CAPSULE PO SCH (08:08)
[2019-05-09 08:25] VITALS: BP 111/85
[2019-05-09 16:05] VITALS: BP 101/60
[2019-05-09 16:08] VITALS: BP 101/60
[2019-05-09] MEDS: TraZODone HCL 150 MG TABLET PO SCH (20:33)
[2019-05-09] MEDS: OLANZapine 10 MG TABLET PO SCH (20:33)
[2019-05-10] VITALS: BP 112/68
[2019-05-10 08:09] VITALS: BP 108/66
[2019-05-10] MEDS: FLUoxetine HCL 20 MG CAPSULE PO SCH (08:23)
[2019-05-10 09:02] VITALS: BP 108/66
[2019-05-10 16:17] VITALS: BP 112/74
[2019-05-10 16:43] VITALS: BP 114/74
[2019-05-10] MEDS: TraZODone HCL 150 MG TABLET PO SCH (20:28)
[2019-05-10] MEDS: OLANZapine 10 MG TABLET PO SCH (20:28)
[2019-05-11] VITALS: BP 112/78
[2019-05-11 08:21] VITALS: BP 109/69
[2019-05-11] MEDS: FLUoxetine HCL 20 MG CAPSULE PO SCH (08:22)
== END 2019-05-11 11:19 | disposition home or self-care (01) | DRG 885 ==
LOC: B2X 14:36
PROVIDERS: ADMIT Psychiatry & Neurology Psychiatry; ATTEND Psychiatry & Neurology Psychiatry
DX: F25.9 Schizoaffective disorder, unspecified (principal); E87.6 Hypokalemia; F12.90 Cannabis use, unspecified, uncomplicated; E03.9 Hypothyroidism, unspecified; F15.90 Other stimulant use, unspecified, uncomplicated; D64.9 Anemia, unspecified; K59.00 Constipation, unspecified
CPT/HCPCS: 84439; 84443; G0480

== ENCOUNTER 2019-05-24 16:28 | Inpatient (IN) | payer MEDICARE ==
[~2019-05-24] VITALS: Ht 165.1 cm; Wt 70.8 kg
[2019-05-24] MEDS ORDERED: ZOLPIDEM TARTRATE 10 MG TABLET PO PRN (18:30)
[2019-05-24] MEDS ORDERED: HALOPERIDOL 5 MG TABLET PO PRN (18:30)
[2019-05-24 18:54] VITALS: BP 123/86
[2019-05-24 20:16] VITALS: BP 126/85
[2019-05-24] MEDS: LORazepam 2 MG TABLET PO PRN (21:01)
[2019-05-25 03:43] VITALS: BP 112/63
[2019-05-25 07:49] LABS: EOSINOPHILS % (AUTO) 4.9 % (1.0-6.0); HEMATOCRIT 43.9 % (41-53); HEMOGLOBIN 14.7 g/dL (13.5-17.5); LYMPHOCYTES # (AUTO) 1.7 K/uL (1.0-4.8); LYMPHOCYTES % (AUTO) 41.8 % (22.0-44.0); MEAN CORPUSCULAR HEMOGLOBIN 29.5 pg (26.0-34.0); MEAN CORPUSCULAR HGB CONC 33.5 G/dL (31.0-37.0); MEAN CORPUSCULAR VOLUME 88 fL (80-100); MONOCYTES # (AUTO) 0.5 K/uL (0.1-1.0); MONOCYTES % (AUTO) 12.1 % (2.0-9.0); NEUTROPHILS # (AUTO) 1.6 K/uL (1.8-7.7); NEUTROPHILS % (AUTO) 40.2 % (40.0-70.0); PLATELET COUNT (AUTO) 242 K/uL (150-450); RED BLOOD CELL COUNT(AUTO) 4.98 MIL/uL (4.50-5.90); RED CELL DISTRIBUTION WIDTH 13.9 % (11.5-14.5)
[2019-05-25 07:58] LABS: HEMOGLOBIN A1C 5.6 % (4.5-6.2)
[2019-05-25 08:16] LABS: ALANINE AMINOTRANSFERASE 23 U/L (12-78); ALBUMIN 3.1 g/dL (3.4-5.0); ALKALINE PHOSPHATASE 81 U/L (46-116); ANION GAP 13 mmol/L (8-16); ASPARTATE AMINOTRANSFERASE 21 U/L (15-37); BILIRUBIN,TOTAL 0.3 mg/dL (0.1-1.0); CALCIUM, TOTAL 8.6 mg/dL (8.8-10.5); CARBON DIOXIDE 25 mmol/L (22-29); CHLORIDE 106 mmol/L (98-107); CHOL/HDL RATIO 2.5 (4.2-7.3); CHOLESTEROL 162 mg/dL (131-200); CREATININE 0.94 mg/dL (0.60-1.30); FREE T4 (FREE THYROXINE) 0.79 ng/dL (0.76-1.46); GLOMERULAR FILTR. RATE CALC > 60 mL/min (>60); GLUCOSE,RANDOM 109 mg/dL (70-110); HDL CHOLESTEROL 65 mg/dL (40-60); LDL CHOL (CALC.) 70 mg/dL (0-130); POTASSIUM 4.1 mmol/L (3.5-5.1); SODIUM SERUM 144 mmol/L (136-145); THYROID STIMULATING HORMONE 0.83 uIU/mL (0.36-3.74); TOTAL PROTEIN, SERUM 6.1 g/dL (6.4-8.2); TRIGLYCERIDES 135 mg/dL (15-150); UREA NITROGEN, BLOOD 15 mg/dL (7-18)
[2019-05-25 08:18] VITALS: BP 120/90
[2019-05-25 16:13] VITALS: BP 116/77
[2019-05-25] MEDS: LORazepam 2 MG TABLET PO PRN (16:13)
[2019-05-25] MEDS: TraZODone HCL 150 MG TABLET PO SCH (20:34)
[2019-05-25] MEDS: OLANZapine 10 MG TABLET PO SCH (20:34)
[2019-05-26 02:31] VITALS: BP 118/75
[2019-05-26 08:44] VITALS: BP 112/80
[2019-05-26] MEDS: FLUoxetine HCL 20 MG CAPSULE PO SCH (08:51)
[2019-05-26 16:19] VITALS: BP 104/60
[2019-05-26] MEDS: OLANZapine 10 MG TABLET PO SCH (20:49)
[2019-05-26] MEDS: TraZODone HCL 150 MG TABLET PO SCH (20:49)
[2019-05-27 00:24] VITALS: BP 107/68
[2019-05-27 08:27] VITALS: BP 120/80
[2019-05-27] MEDS: FLUoxetine HCL 20 MG CAPSULE PO SCH (08:54)
[2019-05-27] MEDS ORDERED: BISACODYL 5 MG EC TABLET PO PRN (12:45)
[2019-05-27 16:10] VITALS: BP 109/72
[2019-05-27] MEDS: OLANZapine 10 MG TABLET PO SCH (20:33)
[2019-05-27] MEDS: TraZODone HCL 150 MG TABLET PO SCH (20:33)
[2019-05-28 06:14] VITALS: BP 102/66
[2019-05-28 08:33] VITALS: BP 111/73
[2019-05-28] MEDS: FLUoxetine HCL 20 MG CAPSULE PO SCH (09:15)
[2019-05-28 16:09] VITALS: BP 107/67
[2019-05-28] MEDS: OLANZapine 10 MG TABLET PO SCH (20:41)
[2019-05-28] MEDS: TraZODone HCL 150 MG TABLET PO SCH (20:41)
[2019-05-29] VITALS: BP 100/60
[2019-05-29 08:19] VITALS: BP 119/60
[2019-05-29] MEDS: FLUoxetine HCL 20 MG CAPSULE PO SCH (08:43)
[2019-05-29 16:11] VITALS: BP 109/60
[2019-05-29] MEDS: TraZODone HCL 150 MG TABLET PO SCH (20:32)
[2019-05-29] MEDS: OLANZapine 10 MG TABLET PO SCH (20:32)
[2019-05-30 06:49] VITALS: BP 126/83
[2019-05-30 08:10] VITALS: BP 119/69
[2019-05-30] MEDS: FLUoxetine HCL 20 MG CAPSULE PO SCH (08:32)
[2019-05-30 16:07] VITALS: BP 116/69
[2019-05-30] MEDS: OLANZapine 10 MG TABLET PO SCH (21:13)
[2019-05-30] MEDS: TraZODone HCL 150 MG TABLET PO SCH (21:13)
[2019-05-31 06:08] VITALS: BP 110/69
[2019-05-31] MEDS: FLUoxetine HCL 20 MG CAPSULE PO SCH (08:10)
[2019-05-31 08:12] VITALS: BP 111/70
[2019-05-31 16:09] VITALS: BP 108/69
[2019-05-31] MEDS: TraZODone HCL 150 MG TABLET PO SCH (21:11)
[2019-05-31] MEDS: OLANZapine 10 MG TABLET PO SCH (21:11)
[2019-05-31] MEDS: LORazepam 2 MG TABLET PO PRN (21:36)
[2019-06-01 07:11] VITALS: BP 113/72
[2019-06-01 08:23] VITALS: BP 100/61
[2019-06-01] MEDS: FLUoxetine HCL 20 MG CAPSULE PO SCH (08:42)
[2019-06-01 16:13] VITALS: BP 118/66
[2019-06-01] MEDS: LORazepam 2 MG TABLET PO PRN (17:32)
[2019-06-01] MEDS: TraZODone HCL 150 MG TABLET PO SCH (20:36)
[2019-06-01] MEDS: OLANZapine 10 MG TABLET PO SCH (20:36)
[2019-06-02 07:12] VITALS: BP 110/68
[2019-06-02 08:35] VITALS: BP 106/60
[2019-06-02] MEDS: FLUoxetine HCL 20 MG CAPSULE PO SCH (09:00)
== END 2019-06-02 10:15 | disposition home or self-care (01) | DRG 885 ==
LOC: B2X 16:28
PROVIDERS: ADMIT Psychiatry & Neurology Psychiatry; ATTEND Psychiatry & Neurology Psychiatry
DX: F25.9 Schizoaffective disorder, unspecified (principal); E46 Unspecified protein-calorie malnutrition; R45.851 Suicidal ideations; D64.9 Anemia, unspecified; D72.819 Decreased white blood cell count, unspecified; E03.9 Hypothyroidism, unspecified; E83.51 Hypocalcemia; F12.90 Cannabis use, unspecified, uncomplicated; I10 Essential (primary) hypertension; K59.00 Constipation, unspecified; Z68.26 Body mass index [BMI] 26.0-26.9, adult
CPT/HCPCS: 83036; 84439; 84443; 87081

== ENCOUNTER 2021-01-12 11:29 | Inpatient (IN) | payer MEDICARE ==
[~2021-01-12] VITALS: Ht 165.1 cm; Wt 87.2 kg
[~2021-01-12 11:29] MED LIST changes: +CARV3 PO; +FURO40 PO; +LOSA50TA37 PO; +OLAN10TA20 PO; -OLAN10TA3 PO; +OLAN10TA74 PO; +SPIR25 PO; -TRAZ150T79 PO
[2021-01-12] MEDS ORDERED: HALOPERIDOL 5 MG TABLET PO PRN (14:45)
[2021-01-12] MEDS ORDERED: ZOLPIDEM TARTRATE 10 MG TABLET PO PRN (14:45)
[2021-01-12 14:59] LABS: GLUCOMETER DEV NAME(LOC) POC.BV
[2021-01-12] MEDS: FLUoxetine HCL 20 MG CAPSULE PO SCH (16:30)
[2021-01-12 20:00] VITALS: BP 142/98
[2021-01-12] MEDS: OLANZapine 5 MG TABLET PO SCH (20:36)
[2021-01-12 20:37] VITALS: BP 142/98
[2021-01-12] MEDS ORDERED: TraZODone HCL 50 MG TABLET PO SCH (21:00)
[2021-01-12] MEDS: LORazepam 2 MG TABLET PO PRN (21:16)
[2021-01-13] MEDS ORDERED: CARVEDILOL 3.125 MG TABLET PO SCH (09:00)
[2021-01-13] MEDS ORDERED: FUROSEMIDE 20 MG TABLET PO SCH (09:00)
[2021-01-13] MEDS ORDERED: SPIRONOLACTONE 25 MG TABLET PO SCH (09:00)
[2021-01-13] MEDS ORDERED: CloNIDine HCL 0.1 MG TABLET PO PRN (09:15)
[2021-01-13] MEDS ORDERED: ACETAMINOPHEN 325 MG TABLET PO PRN (09:15)
[2021-01-13] MEDS ORDERED: DOCUSATE SODIUM 100 MG CAPSULE PO PRN (09:15)
[2021-01-13] MEDS ORDERED: LOPERAMIDE HCL 2 MG CAPSULE PO PRN (09:15)
[2021-01-13] MEDS ORDERED: MAG HYDROX/AL HYDROX/SIMETH ES 30 ML SUSPENSION UDCUP PO PRN (09:15)
[2021-01-13] MEDS ORDERED: MAGNESIUM HYDROXIDE SUSPENSION 30 ML UDCUP PO PRN (09:15)
[2021-01-13] MEDS ORDERED: NICOTINE 14 MG/24 HOUR PATCH TD PRN (09:15)
[2021-01-13] MEDS ORDERED: ONDANSETRON HCL 4 MG TABLET PO PRN (09:15)
[2021-01-13] MEDS ORDERED: PETROLATUM,WHITE 28 GM JELLY TP PRN (09:15)
[2021-01-13] MEDS ORDERED: GuaiFENesin/D-METHORPHAN [SUGAR-FREE] 200-20MG/10 ML SYRUP UDCUP PO PRN (09:15)
[2021-01-13] MEDS ORDERED: IBUPROFEN 400 MG TABLET PO PRN (09:15)
[2021-01-13] MEDS ORDERED: ALBUTEROL SULFATE HFA 90 MCG/PUFF 8 GM INHALER IH PRN (09:15)
[2021-01-13] MEDS: FLUoxetine HCL 20 MG CAPSULE PO SCH (10:54)
[2021-01-13] MEDS: OLANZapine 5 MG TABLET PO SCH ×2 (10:54→17:00)
[2021-01-13] MEDS: SACUBITRIL/VALSARTAN 24-26 MG TABLET PO SCH (10:54)
[2021-01-13] MEDS: CARVEDILOL 3.125 MG TABLET PO SCH ×2 (10:55→17:00)
[2021-01-13] MEDS: LORazepam 2 MG TABLET PO PRN (10:57)
[2021-01-13 17:36] VITALS: BP 103/55
[2021-01-13] MEDS: TraZODone HCL 150 MG TABLET PO SCH (20:33)
[2021-01-14 00:13] VITALS: BP 94/61
[2021-01-14 06:36] LABS: BASOPHILS % (AUTO) 1.1 % (0.0-2.0); EOSINOPHILS % (AUTO) 5.8 % (1.0-6.0); HEMATOCRIT 42.8 % (41-53); HEMOGLOBIN 14.4 g/dL (13.5-17.5); LYMPHOCYTES # (AUTO) 1.7 K/uL (1.0-4.8); LYMPHOCYTES % (AUTO) 34.6 % (22.0-44.0); MEAN CORPUSCULAR HEMOGLOBIN 30.2 pg (26.0-34.0); MEAN CORPUSCULAR HGB CONC 33.6 G/dL (31.0-37.0); MEAN CORPUSCULAR VOLUME 90 fL (80-100); MONOCYTES # (AUTO) 0.5 K/uL (0.1-1.0); MONOCYTES % (AUTO) 10.2 % (2.0-9.0); NEUTROPHILS # (AUTO) 2.3 K/uL (1.8-7.7); NEUTROPHILS % (AUTO) 48.3 % (40.0-70.0); PLATELET COUNT (AUTO) 190 K/uL (150-450); RED BLOOD CELL COUNT(AUTO) 4.77 MIL/uL (4.50-5.90); RED CELL DISTRIBUTION WIDTH 14.1 % (11.5-14.5)
[2021-01-14 07:24] LABS: ALANINE AMINOTRANSFERASE 31 U/L (12-78); ALBUMIN 3.3 g/dL (3.4-5.0); ALKALINE PHOSPHATASE 73 U/L (46-116); ANION GAP 7 mmol/L (8-16); ASPARTATE AMINOTRANSFERASE 24 U/L (15-37); BILIRUBIN,TOTAL 0.3 mg/dL (0.1-1.0); CALCIUM, TOTAL 8.6 mg/dL (8.8-10.5); CARBON DIOXIDE 28 mmol/L (22-29); CHLORIDE 105 mmol/L (98-107); CHOL/HDL RATIO 4.2 (4.2-7.3); CHOLESTEROL 219 mg/dL (131-200); GLOMERULAR FILTR. RATE CALC > 60 mL/min (>60); GLUCOSE,RANDOM 102 mg/dL (70-110); HDL CHOLESTEROL 52 mg/dL (40-60); LDL CHOL (CALC.) 134 mg/dL (0-130); SODIUM SERUM 140 mmol/L (136-145); TOTAL PROTEIN, SERUM 6.4 g/dL (6.4-8.2); TRIGLYCERIDES 167 mg/dL (15-150); UREA NITROGEN, BLOOD 16 mg/dL (7-18)
[2021-01-14 07:34] LABS: HEMOGLOBIN A1C 5.6 % (3.8-5.6)
[2021-01-14] MEDS: SPIRONOLACTONE 25 MG TABLET PO SCH (08:00)
[2021-01-14] MEDS: LOSARTAN POTASSIUM 50 MG TABLET PO SCH (08:01)
[2021-01-14] MEDS: OLANZapine 5 MG TABLET PO SCH ×2 (08:01→16:30)
[2021-01-14] MEDS: SACUBITRIL/VALSARTAN 24-26 MG TABLET PO SCH (08:01)
[2021-01-14] MEDS: CARVEDILOL 3.125 MG TABLET PO SCH ×2 (08:01→16:30)
[2021-01-14] MEDS: FLUoxetine HCL 20 MG CAPSULE PO SCH (08:01)
[2021-01-14] MEDS: FUROSEMIDE 40 MG TABLET PO SCH (08:01)
[2021-01-14 08:49] VITALS: BP 108/52
[2021-01-14 11:20] LABS: FREE T4 (FREE THYROXINE) 0.77 ng/dL (0.76-1.46); THYROID STIMULATING HORMONE 1.28 uIU/mL (0.36-3.74)
[2021-01-14 16:39] VITALS: BP 100/64
[2021-01-14] MEDS: TraZODone HCL 150 MG TABLET PO SCH (20:24)
[2021-01-15 03:38] VITALS: BP 112/64
[2021-01-15 03:43] VITALS: BP 112/64
[2021-01-15] MEDS: SPIRONOLACTONE 25 MG TABLET PO SCH (08:16)
[2021-01-15] MEDS: FUROSEMIDE 40 MG TABLET PO SCH (08:16)
[2021-01-15] MEDS: FLUoxetine HCL 20 MG CAPSULE PO SCH (08:16)
[2021-01-15] MEDS: OLANZapine 5 MG TABLET PO SCH ×2 (08:16→16:41)
[2021-01-15] MEDS: LOSARTAN POTASSIUM 50 MG TABLET PO SCH (08:16)
[2021-01-15] MEDS: CARVEDILOL 3.125 MG TABLET PO SCH ×2 (08:16→16:41)
[2021-01-15] MEDS: SACUBITRIL/VALSARTAN 24-26 MG TABLET PO SCH (08:16)
[2021-01-15 16:44] VITALS: BP 129/71
[2021-01-15] MEDS: TraZODone HCL 150 MG TABLET PO SCH (20:46)
[2021-01-16 08:18] VITALS: BP 119/79
[2021-01-16] MEDS: OLANZapine 5 MG TABLET PO SCH (08:59)
[2021-01-16] MEDS: FLUoxetine HCL 20 MG CAPSULE PO SCH (08:59)
[2021-01-16] MEDS: FUROSEMIDE 40 MG TABLET PO SCH (09:00)
[2021-01-16] MEDS: LOSARTAN POTASSIUM 50 MG TABLET PO SCH (09:01)
[2021-01-16] MEDS: CARVEDILOL 3.125 MG TABLET PO SCH (09:02)
[2021-01-16] MEDS: SPIRONOLACTONE 25 MG TABLET PO SCH (09:03)
[2021-01-16] MEDS: SACUBITRIL/VALSARTAN 24-26 MG TABLET PO SCH (09:17)
[2021-01-16] MEDS ORDERED: TRAZ150 PO (12:27)
[2021-01-16] MEDS ORDERED: OLAN5TAB52 PO (12:29)
[2021-01-16] MEDS ORDERED: SACU1TAB PO (12:31)
== END 2021-01-16 14:45 | disposition home or self-care (01) | DRG 885 ==
LOC: UNDOADMIN 17:15 → 3EX 17:15
PROVIDERS: ADMIT Psychiatry & Neurology Psychiatry; ATTEND Psychiatry & Neurology Psychiatry
DX: F25.0 Schizoaffective disorder, bipolar type (principal); I11.0 Hypertensive heart disease with heart failure; I25.10 Atherosclerotic heart disease of native coronary artery without angina pectoris; F15.90 Other stimulant use, unspecified, uncomplicated; Z79.899 Other long term (current) drug therapy; I50.9 Heart failure, unspecified; E66.9 Obesity, unspecified; R73.03 Prediabetes; Z68.32 Body mass index [BMI] 32.0-32.9, adult; Z20.822 Contact with and (suspected) exposure to COVID-19
CPT/HCPCS: 80053; 80061; 83036; 84436; 84439; 84443; 85025; 86592; 87426; A9575; G0378; G0480

== ENCOUNTER 2022-06-20 15:50 | Emergency (ER) | payer MEDICARE ==
[~2022-06-20] VITALS: Ht 165.1 cm; Wt 84.5 kg
[~2022-06-20 15:50] MED LIST changes: -CARV3 PO; +CARV6 PO; -FLUO-191 PO; -FURO40 PO; -LOSA50TA37 PO; -OLAN10TA20 PO; -OLAN10TA74 PO; +OLAN5TAB52 PO; +PARO-38 PO; +PARO10TA89 PO; +SACU1TAB PO; +SPIR-37 PO; -SPIR25 PO; +TRAZ-283 PO; +TRAZ150T80 PO
[2022-06-20 16:25] VITALS: BP 132/77
[2022-06-20 16:38] LABS: BASOPHILS % (AUTO) 1.4 % (0.0-2.0); EOSINOPHILS % (AUTO) 3.9 % (1.0-6.0); HEMATOCRIT 42.2 % (41-53); HEMOGLOBIN 13.9 g/dL (13.5-17.5); LYMPHOCYTES # (AUTO) 1.9 K/uL (1.0-4.8); LYMPHOCYTES % (AUTO) 25.5 % (22.0-44.0); MEAN CORPUSCULAR HEMOGLOBIN 28.6 pg (26.0-34.0); MEAN CORPUSCULAR HGB CONC 32.9 G/dL (31.0-37.0); MEAN CORPUSCULAR VOLUME 87 fL (80-100); MONOCYTES # (AUTO) 0.6 K/uL (0.1-1.0); MONOCYTES % (AUTO) 8.2 % (2.0-9.0); NEUTROPHILS # (AUTO) 4.6 K/uL (1.8-7.7); PLATELET COUNT (AUTO) 237 K/uL (150-450); RED BLOOD CELL COUNT(AUTO) 4.86 MIL/uL (4.50-5.90); RED CELL DISTRIBUTION WIDTH 13.8 % (11.5-14.5)
[2022-06-20 16:46] LABS: ANION GAP 10 mmol/L (8-16); CALCIUM, TOTAL 8.6 mg/dL (8.8-10.5); CARBON DIOXIDE 27 mmol/L (22-29); CHLORIDE 104 mmol/L (98-107); CREATININE 0.91 mg/dL (0.60-1.30); GLOMERULAR FILTR. RATE CALC > 60 mL/min (>60); GLUCOSE,RANDOM 86 mg/dL (70-110); POTASSIUM 3.5 mmol/L (3.5-5.1); SODIUM SERUM 141 mmol/L (136-145); UREA NITROGEN, BLOOD 16 mg/dL (7-18)
[2022-06-20 16:52] LABS: ALANINE AMINOTRANSFERASE 40 U/L (12-78); ALBUMIN 3.2 g/dL (3.4-5.0); ALKALINE PHOSPHATASE 85 U/L (46-116); ASPARTATE AMINOTRANSFERASE 48 U/L (15-37); BILIRUBIN,TOTAL 0.4 mg/dL (0.1-1.0); TOTAL PROTEIN, SERUM 6.6 g/dL (6.4-8.2)
== END 2022-06-20 17:50 | disposition home or self-care (01) ==
LOC: EMS 15:50
DX: F25.1 Schizoaffective disorder, depressive type (principal); F15.10 Other stimulant abuse, uncomplicated; F10.20 Alcohol dependence, uncomplicated; F17.210 Nicotine dependence, cigarettes, uncomplicated; Z96.89 Presence of other specified functional implants; Z98.890 Other specified postprocedural states; Y90.0 Blood alcohol level of less than 20 mg/100 ml
CPT/HCPCS: 99284; 80053; 85025; 36415; G0480